=== PATIENT | male | born 1970 | race Caucasian/White ===

== ENCOUNTER 2017-06-03 20:06 | Emergency (ER) | payer SELFPAY ==
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
== END 2017-06-03 21:20 | disposition left against medical advice (07) ==
LOC: ER 20:06
DX: Z04.3 Encounter for examination and observation following other accident (principal); V49.49XA Driver injured in collision with other motor vehicles in traffic accident, initial encounter; Z72.0 Tobacco use
CPT/HCPCS: 99284